=== PATIENT | male | born 1950 | race Caucasian/White ===

== ENCOUNTER 2018-04-02 08:58 | Inpatient (IN) | payer MEDICARE, SELFPAY ==
[2018-03-27 11:01] VITALS: BMI 22.7
[2018-04-02] VITALS (12 sets, daily range): BP systolic 101–142; BP diastolic 51–72; PULSE 73–103; RESP 10–22; TEMP 36.4–36.9; O2SAT 95–100; BMI 22.7
--- NOTE | 2018-04-02 | DI.RAD.S_ITS ---
PROCEDURE: XR LUMBAR SPINE 2-3V INDICATIONS: L4-5, L5-S1 TLIF TECHNIQUE: 2 views of the lumbar spine were acquired. COMPARISON: None. FINDINGS: Bones: Postsurgical changes compatible with L4-L5 and L5-S1 TLIF. Orthopedic hardware is intact. No lucencies at the bone hardware interface. Soft tissues: Overlying bowel gas pattern is normal. No suspicious soft tissue calcifications. IMPRESSION: Expected postsurgical change for L4-L5 and L5-S1 TLIF. Dictated by: Lorin Mcbride MD, PhD on 04/02/2018 at 14:24 Approved by: Lorin Mcbride MD, PhD on 04/02/2018 at 14:30
[2018-04-02] MEDS: LACTATED RINGERS 1,000 ML 42 ML IV ×2 (09:37→12:44)
--- NOTE | 2018-04-02 10:15 | PM.PREOP ---
Pre-operative Note Interval Note Pre-op Check: Yes History & Physical Reviewed by Physician and Yes Exam Performed Changes: No
--- NOTE | 2018-04-02 10:21 | PM.OP.1 ---
Operative Date/Time/Diagnoses Date of procedure: 04/02/18 Time of procedure: 15:04 Pre-op diagnosis: Lumbar stenosis with radiculopathy Lumbar spondylolisthesis Post-op diagnosis: same Procedure & Clinicians Procedure: L4-5 TLIF (post/post innerbody fusion) with cage L5S1 TLIF (post/post innerbody fusion) with cage L4, L5, S1 screws Iliac crest bone graft aspirate L4-5 and L5-S1 laminectomy Use of microscope Placement of epidural catheter Same procedure as scheduled: Yes Indications: [age] year old male with intractable pain from stenosis. They had failed conservative management and requested operative intervention. Risks and benefits of surgery were discussed and appropriate consents were obtained. Surgeon: Sourav Saavedra Director [employer] Engineering: Sulema Hansen Anesthesia Type: General Operative Notes Findings: None Closure Type: primary Specimen(s): none sent Implants & Drains: NuVasive MAS reline screws Globus Rise cages Applied: catheter Estimated Blood Loss (mL): 100 Procedure in detail: The patient was brought to the operating room and intubated on the table. A time-out was performed. They were then rolled over to the well-padded Harvinder table in the prone position. Preoperative antibiotics were given. The back was prepped and draped in the standard sterile fashion. Using fluoroscopy, a 6 cm longitudinal incision was made to the left of the midline. We used Bovie to come down to and split the lumbodorsal fascia. Using fluoroscopy and monitoring, we then percutaneously placed Jamshidi needles down the pedicles of L4, L5, and S1 on the left side. These were changed out to guidewires and then we tapped and then placed the NuVasive MAS Precept screw shanks. We then opened up the retractors and used Bovie to clear up the posterolateral gutter as well as medially along the lamina to the spinous processes. A bur was used to decorticate the transverse processes. We brought in the microscope. Using a combination of bur and Kerrison rongeurs, a laminectomy was performed from the left side. We cleared over past the midline and carefully depressed the dura until we were able to decompress the opposite side. We cleared out the neural foramen. This completed the laminectomy at L5-S1. We then began the TLIF prep at L5-S1. A complete facetectomy was performed on this side. We carefully cleaned up the remainder of the foramen until we could easily retract the exiting root as well as clearing medially below the dura and expose the disc space. The disc was prepped with bipolar and then an annulotomy was performed. We performed a diskectomy using a combination of paddles, su, Kerrison, and curettes. We distracted the disc using a paddle and locked the retractor in an open position. We then filled the disc space with Osteocell bone graft. We then placed the globus Rise cage under fluoroscopy and then filled this in with more bone graft. The distraction on the retractor was released to compress down. This completed the posterior interbody fusion portion of the TLIF at L5-S1. We then moved up a level and performed the laminectomy at L4-5. This was extremely tight throughout the central canal and required extensive decompression making a separate and distinct procedure from the normal approach for a TLIF. At the end of it we could move the ball probe well across the midline and out the foramen and everything was opened. We then performed a facetectomy at L4-5. We prepped the disc space with bipolar. The dura was carefully retracted and we prepped the disc space with su, pituitaries, and curettes. Osteocell bone graft was placed in the disc space and then we placed and expanded another globus Rise cage under fluoroscopic visualization. We then placed the screw heads, mary, and locked down the set screws. The wound was copiously irrigated. A small stab incision was made over the PSIS. We used a Jamshidi needle to aspirate several mL of bone marrow from the pelvis. This was mixed with the remaining Osteocell and combined with all of the locally harvested bone graft and placed in the posterolateral gutter for the posterior fusion of the TLIF at L4-5 and L5-S1. An epidural catheter was then placed in the spinal canal by carefully depressing the dura and advancing it 6 cm cephalad under the remaining lamina without resistance. The muscle fascia was closed. The catheter was then injected with a solution containing 4 mL of 0.5% Marcaine, 1 mg Stadol, 4 mg Duramorph, and 100 mcg of fentanyl. This was injected without resistance and the catheter was pulled. We then went to the opposite side. Again using fluoroscopy, a 3 cm incision was made and Bovie was used to come down to split the fascia. Using neural monitoring and fluoroscopy, Jamshidi needles were advanced down the pedicles of L4, L5, and S1 on the right side. These were switched over guidewires, tapped, and screws placed. We then placed a mary and locked the set screws on this side. The wound was irrigated. The fascia was closed. Vancomycin powder was placed in the wounds. The superficial and skin were closed. A sterile dressing was placed. The patient was then rolled over extubated and brought to recovery room without complications. Complications: none Condition: stable Disposition: PACU Plan for aftercare: Inpatient. Up with physical therapy.
[2018-04-02] MEDS: CEFAZOLIN 2 GM/100 ML FROZ.PIGGY IV ×2 (11:14→19:03)
--- NOTE | 2018-04-02 11:50 | SUR.OPER ---
Prone on spine table, head in foam head support, padded chest and pelvic supports, gel pad at knees, lower legs supported by pillows; nipples, genitalia and toes free of pressure, arms secured on foam padded arm boards at <90 degrees abduction. Tape over blanket at thigh secured to table.
[2018-04-02] MEDS: VANCOMYCIN 1,000 MG VIAL 1000 MG TOP (11:59)
[2018-04-02] MEDS: SODIUM CHLORIDE 0.9% 1,000 ML, GENTAMICIN 80 MG IRR (11:59)
[2018-04-02] MEDS: BUPIVACAINE 0.5% (PF) 4 ML, MORPHINE-PF 4 MG, BUTORPHANOL 1 MG, fentaNYL 100 MCG INJ (14:01)
--- NOTE | 2018-04-02 15:11 | SUR.PHASEI ---
PT NOW MORE AWAKE, FOLLOWS SIMPLE COMMANDS.
--- NOTE | 2018-04-02 15:37 | SUR.PHASEI ---
PT C/O R EYE IRRITATION, EYE TEARING, SOMEWHAT BLOODSHOT, DR LINTON AWARE, NO C/O PAIN TO BACK.
--- NOTE | 2018-04-02 15:44 | SUR.PHASEI ---
AWAITING DIRECTION FROM DR LINTON ABOUT R EYE PAIN
--- NOTE | 2018-04-02 16:20 | PC.NURSE ---
Pt to room 209 from PACU drowsy, but rousable. Hard of hearing, but appropriate mentation and conversation when heard. Granddaughter accompanies pt. Continuous pulse oximeter in place. Room air 93%. Pt c/o right eye pain and SERVICE STATION OPERATOR is aware and states so is anesthesiologist who prescribed erythromycin ointment which has been given per SERVICE STATION OPERATOR. Intact circulation, motion, sensation to BL LE's. Kaur to gravity.
--- NOTE | 2018-04-02 16:28 | SUR.PHASEI ---
late entry: called into room to talk with dr jorge nunesomycin ointment ordered, called to pharmacy and spoke with carroll, ointment brought to unit and dose given to pt. pt eventually stated eye felt much better, was able to keep eye open and did not need to rub it, eye also stopped tearing. pt brought up to room 209, and left with clayton in stable condition.
--- NOTE | 2018-04-02 16:59 | PC.NURSE ---
Pt c/o increasing burning pain to right eye. Eye is watery with reddened conjunctiva. Pt reports able to see without difficulty, but eye continues to water continually. LINK WIRE FABRIC MACHINE TENDER, Velvet, was contacted by telephone and this chief underwriter requested MD come to pt's room to assess pt's eye. Pt becoming angry with situation.
[2018-04-02] MEDS: LACTATED RINGERS 1,000 ML 125 ML IV (17:05)
[2018-04-02] MEDS: HYDROCODONE/ACET 5/325 TABLET 2 TAB PO (17:14)
--- NOTE | 2018-04-02 17:17 | PC.NURSE ---
Dr. Le in to see patient and examine pt's right eye. Medicated for pain as per Dr. Le. Two vicodin with evening meal.
[2018-04-02] MEDS: CELECOXIB 200 MG CAPSULE 400 MG PO (17:48)
[2018-04-02] MEDS: INSULIN ASPART 100 UNIT/ML INSULN PEN SUBCUT (17:49)
--- NOTE | 2018-04-02 18:15 | PC.NURSE ---
Pt continues to be angry with verbal outbursts re painful right eye. Using foul language. Staff intervene as needed, but allow pt time alone with family in room and respite from staff interventions and interruptions. Offered ice pack to eye which pt declines. Offered gauze patch to right eye which pt refuses.
--- NOTE | 2018-04-02 19:07 | PC.NURSE ---
Granddaughters have assisted pt in taking evening meal. Pt with excellent appetite and able to feed self. More calm, cooperative with staff s/p vistaril administration.
--- NOTE | 2018-04-02 21:05 | PC.NURSE ---
Pt now wide awake and reports right eye feels much more comfortable. No longer tearful and erythema has subsided. Pt agreeable and cooperative with staff. Offered pain meds to pt and pt declines stating not currently experiencing pain.
[2018-04-02] MEDS: buPROPion SR 150 MG TAB PO (21:08)
[2018-04-02] MEDS: METFORMIN HCL 500 MG TABLET PO (21:09)
[2018-04-02] MEDS: GABAPENTIN 300 MG CAPSULE PO (21:09)
[2018-04-02] MEDS: DOCUSATE 100 MG CAPSULE PO (21:09)
[2018-04-02] MEDS: CELECOXIB 200 MG CAPSULE PO (21:09)
[2018-04-02] MEDS: SENNOSIDES 8.6 MG TABLET 17.2 MG PO (21:10)
--- NOTE | 2018-04-02 23:11 | PC.NURSE ---
Invited to reposition and pt refuses. States is able to move core independently in bed and shift weight.
[2018-04-03] MEDS: LACTATED RINGERS 1,000 ML 125 ML IV (01:51)
[2018-04-03 01:55] VITALS: BP 113/55; PULSE 64; RESP 18; TEMP 36.7; O2SAT 99
--- NOTE | 2018-04-03 02:15 | PC.NURSE ---
Addendum entered by Roya Reyes R.N. 04/03/18 06:34: Patient slept most of shift. Pleasant and cooperative this morning and has apologized for behavior last night. States eye no longer hurts but still tearing. No redness noted. Pain currently 3/10 but declines offer of pain medication and/or Vistaril and ice pack. Original Note: Patient is alert and oriented. Has been sleeping since start of shift, but now awakened. Breath sounds CTA with RA sat of 99%. HRR. Denies nausea. BT present with flatus/stool in colostomy bag. Indwelling catheter is patent. Able to turn self in bed. Dressing to lower back is CDI. States pain is currently 4/10 but declined offer of pain med stating pain is tolerable. CMS intact where numbness was present pre-op. Instructed in use of incentive spirometer and demonstrated correct use of device but only able to get to 1500. Wearing bilateral footie SCD's. Fall risk score is moderate; bed alarm is activated.
[2018-04-03] MEDS: CEFAZOLIN 2 GM/100 ML FROZ.PIGGY IV (03:07)
[2018-04-03 06:05] VITALS: BP 105/50; PULSE 63; RESP 20; TEMP 36.4; O2SAT 99
[2018-04-03 06:28] LABS: Add Manual Diff / Slide Review NO; Basophils Percent Auto 0.5 % (0-2); Eosinophils Percent Auto 0.7 % (2-4); Hematocrit 31.1 % (41-53); Hemoglobin 10.4 g/dL (13.5-17.5); Lymphocytes Percent Auto 22.1 % (25-40); Mean Corpuscular HGB Conc 33.4 % (30-36); Mean Corpuscular Hemoglobin 31.3 PG (26-34); Mean Corpuscular Volume 93.5 fL (80-100); Neutrophils Absolute Auto 7300 /uL (3000-5900); Neutrophils Percent Auto 67.7 % (50-75); Red Blood Cell Count 3.32 X10^6/uL (4.5-5.9); Red Cell Distribution Width 16.5 % (11.6-14.8); White Blood Cell Count 10.9 X10^3/uL (4.5-11.0)
[2018-04-03 06:49] LABS: Platelet Count 64 X10^3/uL (150-400)
--- NOTE | 2018-04-03 06:58 | P.PN_ITS ---
Subjective Date Patient Seen: 04/03/18 Time Patient Seen: 06:57 Interval history: Pain is about 3/10. All in the low back. The legs feel normal. Exam Vital Signs (past 8 hours): - 04/03/18 01:55 04/03/18 06:05 Temperature 98.0 F 97.5 F L Pulse Rate 64 63 Respiratory Rate 18 20 Blood Pressure 113/55 L 105/50 L Pulse Oximetry 99 99 Oxygen Delivery Method Room Air Oxygen Flow Rate 0 Const Orientation: alert and oriented x3 Back/Spine/Pelvis Other: Dressing CDI. 5/5 motor both lower extremities. Objective Labs Result Diagrams: 04/03/18 06:02 Labs: Laboratory Results - last 24 hr 04/03/18 06:02 WBC 10.9 RBC 3.32 L Hgb 10.4 L Hct 31.1 L MCV 93.5 MCH 31.3 MCHC 33.4 RDW 16.5 H Plt Count 64 L Neut % (Auto) 67.7 Lymph % (Auto) 22.1 L Bartholomew % (Auto) 9.0 Eos % (Auto) 0.7 L Baso % (Auto) 0.5 Neut # (Auto) 7300 H glucose 170-280 Assessment & Plan Post-op Postoperative Procedures Operation Date: 04/02/18 11:15 Actual Procedures Side Surgeon p L4-5, L5-S1 Laminectomy w/Instru. Fusion & bone graft TLIF Not Applicable Sourav Saavedra MD He is doing well after his laminectomy and fusion. We will increase his insulin dosing. Mobilize with therapy. Discharge home in the next few days. Platelets are 64 today. This is consistent with his history of thrombocytopenia. We will recheck tomorrow. Quality VTE Deep Vein Thrombosis/Pulmonary Embolism Present on Admission: No
[2018-04-03 07:30] VITALS: BP 97/53; PULSE 64; RESP 16; TEMP 36.9; O2SAT 98
[2018-04-03] MEDS: INSULIN ASPART 100 UNIT/ML INSULN PEN SUBCUT ×3 (08:18→17:05)
[2018-04-03] MEDS: METFORMIN HCL 500 MG TABLET PO ×2 (08:20→19:59)
[2018-04-03] MEDS: HYDROCODONE/ACET 5/325 TABLET 1 TAB PO ×3 (08:22→20:00)
[2018-04-03] MEDS: DOCUSATE 100 MG CAPSULE PO (08:23)
[2018-04-03] MEDS: ASPIRIN EC 81 MG TABLET PO (08:23)
[2018-04-03] MEDS: ATORVASTATIN 20 MG TABLET 40 MG PO (08:23)
[2018-04-03] MEDS: buPROPion SR 150 MG TAB PO ×2 (08:23→19:59)
[2018-04-03] MEDS: CELECOXIB 200 MG CAPSULE PO ×2 (08:24→19:59)
--- NOTE | 2018-04-03 09:52 | PT.IIE ---
Addendum entered and electronically signed by Socorro Evans PT 04/03/18 17:29: This is to certify that I have reviewed this documentation and POC. Original Note: Current Diagnoses Spinal stenosis, lumbar region with neurogenic claudication (04/02/18) Radiculopathy, lumbosacral region (04/02/18) Low back pain (04/02/18) Surgery Performed Operation Date: 04/02/18 11:15 Actual Procedures p L4-5, L5-S1 Laminectomy w/Instru. Fusion & bone graft TLIF(Not Applicable) - Sourav Saavedra MD Surgical History (Last Updated 03/17/18 @ 10:02 by Erica Pacheco RN) History of arthroscopy of both shoulders (Acute) S/P cervical spinal fusion (Acute) Medical History (Last Updated 03/27/18 @ 10:29 by Erica Pacheco RN) Chronic back pain (Acute) Colon cancer (Acute) DDD (degenerative disc disease) (Acute) Depression (Acute) Diabetes (Acute) Dyshidrosis (Acute) Erectile dysfunction (Acute) [place] (hard of hearing) (Acute) Hyperlipidemia (Acute) Lumbar radiculitis (Acute) Perforated sigmoid colon (Acute) Peripheral neuropathy (Acute) Thrombocytopenia (Acute) Physical Therapy Inpatient Evaluation/Re-Eval M1 PT/OT-IP Prior Functional Status Start: 04/03/18 11:11 Freq: NEEDED Status: Active Protocol: Document 04/03/18 09:52 (Rec: 04/03/18 11:40 [id number]) Medical Review Prior Functional Status Medical History Reviewed Yes Communication No deficits noted Mobility and Gait Pt uses spc indoors < 20% of the time and outdoors >20% of the time (for gravel driveways and uneven terrain) Otherwise he ambulates with no AD. He is independent with all other mobilties including bathing, dressing and self care. Social History Household Members family friend(s) Living Arrangements House Number of Floors (Floors) One Floor Number of Stairs To Enter/Railing? 4 steps with B wide rails to enter. Home Environment Standard Height Toilet Tub/Shower Doors Home Equipment Front Wheel Walker Straight Cane Manual Wheelchair Shower Seat with Backrest Hand Held Shower Grab Bars Near Toilet Grab Bars In Shower Employment Status Retired Additional Social History Comment Pt lives with his adult son who will be moving out soon and his friend (Kirsty) who is a nurse working the 10pm-6 am shift so she is availiable to assist him during the daytime hours and his son is there at night. Pt also owns a mechanical recliner. He states that he typically sleeps with HOB propped up with pillows. M2 PT-IP Current Condition Start: 04/03/18 11:11 Freq: NEEDED Status: Active Protocol: Document 04/03/18 15:45 [facility] (Rec: 04/03/18 15:54 [facility] [id number]) Physical Therapy Current Condition Current Condition Evaluation Date 04/03/18 Treatment Diagnosis Lumbar TLIF; difficulty walking Onset Date 04/02/2018 Precautions Lumbar Precautions Log Roll No Twisting Limit Bending Lifting Restriction of 10 lbs Gait Belt above Incisional Area Other Precautions colostomy bag M3 PT-IP Subjective Start: 04/03/18 11:11 Freq: NEEDED Status: Active Protocol: Document 04/03/18 15:45 [facility] (Rec: 04/03/18 15:54 [facility] [id number]) Subjective Physical Therapy Visit Type Type Treatment Note Visit Start Time 15:31 Visit Stop Time 15:45 Total Visit Minutes 14 Notes 0 Number of CHILD SPECIALIST Visits 0 Physical Therapy Visit Comments Patient Comments pt states he feels a little more tight than he did earlier today, but overall doing well . M4 PT-IP Mobility and Gait Start: 04/03/18 11:11 Freq: NEEDED Status: Active Protocol: Document 04/03/18 15:45 [facility] (Rec: 04/03/18 15:54 [facility] [id number]) PT-Transfer Assessment Sit to and From Stand Sit to and from Stand Standby Assistance Use of Upper Extremities Equipment Transfer Assistive Device Gait Belt Front Wheeled Walker Transfers Transfer Destination Chair Transfer Technique Stand Step Pivot Transfer Ability Level of Assist Standby Assistance Use of Upper Extremities Gait Assessment Gait Gait Assistance Required: Standby Assistance Distance (Feet) 120 Assistive Devices Assistive Device Gait Belt Front Wheeled Walker Gait Deviations General Gait Pattern Decreased Feet Clearance Flexed Trunk Factors Limiting Gait Function Factors Limiting Gait Function Decreased Activity Tolerance Decreased Strength Comments Gait Comments Pt able to self correct forward posture without cuing. Increased forward posture when fatigued. Stair Climbing Assessment Evaluation Level of Assist On Stairs Contact Guard Assistance Devices Stair Climbing Assistive Devices Left Railing Right Railing Technique/Endurance Stair Climbing Direction Ascend and Descend Stair Climbing Technique Step Over Step Number of Steps Climbed 3 Query Text: Stair Climbing Set # Repetitions (reps) 1 M5 PT-IP Objective Assessments Start: 04/03/18 11:11 Freq: NEEDED Status: Active Protocol: Document 04/03/18 09:52 (Rec: 04/03/18 11:40 [id number]) Orientation Orientation/Cognition Level of Alertness Alert Orientation Name Age Birthday Month Date Year Day of Week Place Situation Language Function Ability No Deficits Noted Safety Awareness Decreased Safety Awareness Gross Range of Motion Lower Extremity ROM Assessment Within Functional Limits Strength Lower Extremity Strength Assessment Within Functional Limits Sensation Assessment Sensation Light Touch Intact Comments Sensation Comments Pt states numbness and tingling in BLE is significantly decreased compared to prior surgery, however is still present at a low level. M6 PT-IP Treatment Start: 04/03/18 11:11 Freq: NEEDED Status: Active Protocol: Document 04/03/18 15:45 [facility] (Rec: 04/03/18 15:54 [facility] [id number]) Physical Therapy Treatment Education Education Provided Precautions Safety M7 PT-IP Assessment and Plan Start: 04/03/18 11:11 Freq: NEEDED Status: Active Protocol: Document 04/03/18 15:45 [facility] (Rec: 04/03/18 15:54 [facility] [id number]) PT Summary Assessment and Plan Summary Progress Towards Goals Progressing Toward Goals Assessment Summary Pt able to manage stairs with B rails and CGA, but will need to perform steps with SPC and one rail as he is unable to use 2 rails at home. Pt requested to get back to the chair, therefore bed mobility not assessed this session. Pt tolerated ambulation well without increased c/o pain, although does note that he feels stiff/tight in low back. Pt is making good progress with therapy. Expect he will be able to d/c home when medically stable. Goals Bed Mobility Goal Independent Transfer Goal Independent Front Wheeled Walker Gait Goal Independent Front Wheel Walker Gait Distance 150 Days to Meet Goals 3 Frequency of Treatment Frequency Of Treatment Twice a Day Treatment Plan Other Recommendations and Next Treatment prog. bed mobility, gait, Focus stairs with SPC and one rail Recommendations To Nursing Amount of Assist Needed 1 Person Assist Discharge Recommendations PT Discharge Recommendations Home with Assistance
[2018-04-03 11:45] VITALS: BP 109/56; PULSE 66; RESP 18; TEMP 36.7; O2SAT 96
--- NOTE | 2018-04-03 12:14 | PC.NURSE ---
AM NOTE - alert, states mild discomfort 3-4 on scale 0/10, discussed medications and did admin norco 5/325 x1 tab with breakfast, later up w/phys therapy, denies dizziness, bp 107/37 when stood, mamadou po and ivf heplocked, pain 5 on scale 0/10 after mobilization, to chair, barrier dsg back cdi, no redness or discomfort r eye that pt reported yesterday rosa, given norco 5/325mg for afternoon phys therapy after lunch.
--- NOTE | 2018-04-03 15:01 | PC.NURSE ---
ARIANE Holly I have offered Mr. Lopez if he would like help emptying or cleaning his colostomy he has continuously stated that he does not need help. I offered to set everything up for him to do it himself and he does not want to empty or clean it. There is bowel movement in the colostomy bag. ADALGISA Bonilla notified of this as well as RN coordinator Jonah.
[2018-04-03 15:30] VITALS: BP 139/54; PULSE 77; RESP 18; TEMP 36.7; O2SAT 97
--- NOTE | 2018-04-03 15:45 | PT.IPTN ---
Current Diagnoses Spinal stenosis, lumbar region with neurogenic claudication (04/02/18) Radiculopathy, lumbosacral region (04/02/18) Low back pain (04/02/18) Surgery Performed Operation Date: 04/02/18 11:15 Actual Procedures p L4-5, L5-S1 Laminectomy w/Instru. Fusion & bone graft TLIF(Not Applicable) - Sourav Saavedra MD Physical Therapy Treatment Note M2 PT-IP Current Condition Start: 04/03/18 11:11 Freq: NEEDED Status: Active Protocol: Document 04/03/18 15:45 [facility] (Rec: 04/03/18 15:54 [facility] [id number]) Physical Therapy Current Condition Current Condition Evaluation Date 04/03/18 Treatment Diagnosis Lumbar TLIF; difficulty walking Onset Date 04/02/2018 Precautions Lumbar Precautions Log Roll No Twisting Limit Bending Lifting Restriction of 10 lbs Gait Belt above Incisional Area Other Precautions colostomy bag M3 PT-IP Subjective Start: 04/03/18 11:11 Freq: NEEDED Status: Active Protocol: Document 04/03/18 15:45 [facility] (Rec: 04/03/18 15:54 [facility] [id number]) Subjective Physical Therapy Visit Type Type Treatment Note Visit Start Time 15:31 Visit Stop Time 15:45 Total Visit Minutes 14 Notes 0 Number of TREAD TUBER MACHINE OPERATOR Visits 0 Physical Therapy Visit Comments Patient Comments pt states he feels a little more tight than he did earlier today, but overall doing well . M4 PT-IP Mobility and Gait Start: 04/03/18 11:11 Freq: NEEDED Status: Active Protocol: Document 04/03/18 15:45 [facility] (Rec: 04/03/18 15:54 [facility] [id number]) PT-Transfer Assessment Sit to and From Stand Sit to and from Stand Standby Assistance Use of Upper Extremities Equipment Transfer Assistive Device Gait Belt Front Wheeled Walker Transfers Transfer Destination Chair Transfer Technique Stand Step Pivot Transfer Ability Level of Assist Standby Assistance Use of Upper Extremities Gait Assessment Gait Gait Assistance Required: Standby Assistance Distance (Feet) 120 Assistive Devices Assistive Device Gait Belt Front Wheeled Walker Gait Deviations General Gait Pattern Decreased Feet Clearance Flexed Trunk Factors Limiting Gait Function Factors Limiting Gait Function Decreased Activity Tolerance Decreased Strength Comments Gait Comments Pt able to self correct forward posture without cuing. Increased forward posture when fatigued. Stair Climbing Assessment Evaluation Level of Assist On Stairs Contact Guard Assistance Devices Stair Climbing Assistive Devices Left Railing Right Railing Technique/Endurance Stair Climbing Direction Ascend and Descend Stair Climbing Technique Step Over Step Number of Steps Climbed 3 Query Text: Stair Climbing Set # Repetitions (reps) 1 M5 PT-IP Objective Assessments Start: 04/03/18 11:11 Freq: NEEDED Status: Active Protocol: Document 04/03/18 09:08 (Rec: 04/03/18 11:40 [id number]) Orientation Orientation/Cognition Level of Alertness Alert Orientation Name Age Birthday Month Date Year Day of Week Place Situation Language Function Ability No Deficits Noted Safety Awareness Decreased Safety Awareness Gross Range of Motion Lower Extremity ROM Assessment Within Functional Limits Strength Lower Extremity Strength Assessment Within Functional Limits Sensation Assessment Sensation Light Touch Intact Comments Sensation Comments Pt states numbness and tingling in BLE is significantly decreased compared to prior surgery, however is still present at a low level. M6 PT-IP Treatment Start: 04/03/18 11:11 Freq: NEEDED Status: Active Protocol: Document 04/03/18 15:45 [facility] (Rec: 04/03/18 15:54 [facility] [id number]) Physical Therapy Treatment Education Education Provided Precautions Safety M7 PT-IP Assessment and Plan Start: 04/03/18 11:11 Freq: NEEDED Status: Active Protocol: Document 04/03/18 15:45 [facility] (Rec: 04/03/18 15:54 [facility] [id number]) PT Summary Assessment and Plan Summary Progress Towards Goals Progressing Toward Goals Assessment Summary Pt able to manage stairs with B rails and CGA, but will need to perform steps with SPC and one rail as he is unable to use 2 rails at home. Pt requested to get back to the chair, therefore bed mobility not assessed this session. Pt tolerated ambulation well without increased c/o pain, although does note that he feels stiff/tight in low back. Pt is making good progress with therapy. Expect he will be able to d/c home when medically stable. Goals Bed Mobility Goal Independent Transfer Goal Independent Front Wheeled Walker Gait Goal Independent Front Wheel Walker Gait Distance 150 Days to Meet Goals 3 Frequency of Treatment Frequency Of Treatment Twice a Day Treatment Plan Other Recommendations and Next Treatment prog. bed mobility, gait, Focus stairs with SPC and one rail Recommendations To Nursing Amount of Assist Needed 1 Person Assist Discharge Recommendations PT Discharge Recommendations Home with Assistance
--- NOTE | 2018-04-03 16:03 | CM.IDA ---
Discharge Planning/Care Management CM Discharge Assessment Start: 04/03/18 15:57 Freq: Status: Active Protocol: Document 04/03/18 15:57 [facility] (Rec: 04/03/18 16:03 [facility] [id number]) Discharge Planning Assessment Assigned Vibrating Screed Operator Evelyne Kimberley, LASHAE DPOA/Assigned Designee Name Marilou Milton dtr Contact Information [phone] Advance Directives? No History Provided By Patient Family Member Prior Living Arrangements House Household Members family friend(s) Comment Lives w/ friend and son Type of transporation used prior to Drives own vehicle admit Independent with ADL's Yes Is patient alert and oriented? Yes Barriers to Discharge No Comment Met w/pt, explained role. Pt explains he lives w/family. He expects to go home today or tomorrow? Pt has 5 children, two dtrs will make themselves available to assist pt when pt's son will not be there. Pt says he's been mostly indp and active, has 5 acres he takes care of, works on cars, and has a lot of pets. Pt feels confident about going home, he's very appreciative of this ASSISTANT BASEBALL COACH's visit and explains he had Hospice service when his was dying of CA and he really appreciated the SW they worked with. No expected DC needs. Discharge Plan Home Transportation Arrangement Family Referrals Initiated None needed Whiteboard Updated in Patient Room with Yes name and ext. # of Vibrating Screed Operator Laurie
--- NOTE | 2018-04-03 17:05 | OT.IP.TRT ---
Current Diagnoses Spinal stenosis, lumbar region with neurogenic claudication (04/02/18) Radiculopathy, lumbosacral region (04/02/18) Low back pain (04/02/18) Surgery Performed Operation Date: 04/02/18 11:15 Actual Procedures p L4-5, L5-S1 Laminectomy w/Instru. Fusion & bone graft TLIF(Not Applicable) - Sourav Saavedra MD Occupational Therapy Treatment Note M3 OT- IP Subjective and Pain Start: 04/03/18 17:03 Freq: Status: Active Protocol: Document 04/03/18 17:03 [facility] (Rec: 04/03/18 17:05 [facility] [id number]) OT- Subjective Occupational Therapy Visit Type Type Patient Unavailable Notes Pt's dinner just arrived and therefore to do OT eval tomorrow.
[2018-04-03 19:47] VITALS: BP 120/72; PULSE 96; RESP 18; TEMP 37.1; O2SAT 98
[2018-04-03] MEDS: SODIUM CHLORIDE 0.9% FLUSH 10 ML IV (19:59)
[2018-04-03] MEDS: GABAPENTIN 300 MG CAPSULE PO (19:59)
[2018-04-04 01:10] VITALS: BP 118/80; PULSE 69; RESP 16; TEMP 36.8; O2SAT 97
[2018-04-04] MEDS: HYDROCODONE/ACET 5/325 TABLET 1 TAB PO ×3 (01:17→09:53)
--- NOTE | 2018-04-04 01:33 | PC.NURSE ---
Addendum entered by Roya Reyes R.N. 04/04/18 06:38: States pain is currently 6/10 but when questioned to compare to pain when he attempted to stand he states it's about the same. Assisted to reposition onto right side and now agreeable to having ice pack applied. Original Note: Addendum entered by Roya Reyes R.N. 04/04/18 05:54: When attempting to stand at side of bed to urinate, patient suddenly sat down and complaining of spasm to left side of dressing on back. States pain is 4/10; medicated with Vicodin + Vistaril. Declined offer of ice. Assisted back to lying position and turned onto left side per his request with pillow behind back and between knees. Original Note: Addendum entered by Roya Reyes R.N. 04/04/18 05:09: Earlier patient complained that dressing was irritating as Tegaderm was rolling up on lower edge. Dressing replaced. Incisions well approximated and without redness. Old sanguinous drainage noted on gauze dressings that were removed. Original Note: Patient is alert and oriented but MANZANITA without hearing aids in. Breath sounds CTA with RA sat of 96%. HRR. Denies nausea. BT present; colostomy on left abdomen with brown stool in bag. Indwelling catheter patent; patient requests bradford be removed at this time so d'cd as per MD order to remove on post op day 2. Instructed in sx/prevention of UTI. Dressing to back is CDI. Complains of 4/10 pain so medicated with Vicodin but declines ice pack. Independent with bed mobility. Up yesterday with walker and 1 assist. Chronic, intermittent tingling/numbness in fingers of bilateral hands. CMS intact to LE. Wearing bilateral foot SCD's. Fall risk is moderate; bed alarm is activated.
[2018-04-04 04:00] VITALS: BP 143/76; PULSE 69; RESP 16; TEMP 36.6; O2SAT 94
[2018-04-04] MEDS: hydrOXYzine pamoate 25 MG CAPSULE PO ×2 (05:50→09:53)
[2018-04-04] MEDS: CELECOXIB 200 MG CAPSULE PO (08:14)
[2018-04-04] MEDS: ASPIRIN EC 81 MG TABLET PO (08:14)
[2018-04-04] MEDS: buPROPion SR 150 MG TAB PO (08:14)
[2018-04-04] MEDS: ATORVASTATIN 20 MG TABLET 40 MG PO (08:14)
[2018-04-04] MEDS: DOCUSATE 100 MG CAPSULE PO (08:15)
[2018-04-04] MEDS: METFORMIN HCL 500 MG TABLET PO (08:15)
[2018-04-04] MEDS: SODIUM CHLORIDE 0.9% FLUSH 10 ML IV (08:15)
[2018-04-04] MEDS: INSULIN ASPART 100 UNIT/ML INSULN PEN SUBCUT ×2 (08:16→12:12)
[2018-04-04 08:32] VITALS: BP 139/68; PULSE 69; RESP 15; TEMP 36.7; O2SAT 99
[2018-04-04 08:57] LABS: Add Manual Diff / Slide Review NO; Basophils Percent Auto 0.4 % (0-2); Hematocrit 31.6 % (41-53); Hemoglobin 10.7 g/dL (13.5-17.5); Mean Corpuscular Hemoglobin 31.6 PG (26-34); Mean Corpuscular Volume 92.9 fL (80-100); Monocytes Percent Auto 8.3 % (3-14); Neutrophils Absolute Auto 6200 /uL (3000-5900); Neutrophils Percent Auto 68.3 % (50-75); Platelet Count 57 X10^3/uL (150-400); Red Cell Distribution Width 16.2 % (11.6-14.8); White Blood Cell Count 9.1 X10^3/uL (4.5-11.0)
--- NOTE | 2018-04-04 09:29 | PM.PNPO.1 ---
Subjective Date Patient Seen: 04/04/18 Time Patient Seen: 09:29 Interval history: Patient states his pain was well controlled until yesterday evening. He has had increased left-sided low back pain since late last night or early this morning. Denies radiation and localized just to the left lower lumbar spine. Denies fever chills. No nausea vomiting. Exam Vital Signs (past 8 hours): - 04/04/18 04:00 04/04/18 08:32 Temperature 97.8 F 98.1 F Pulse Rate 69 69 Respiratory Rate 16 15 Blood Pressure 143/76 H 139/68 Pulse Oximetry 94 99 Oxygen Delivery Method Room Air Oxygen Flow Rate 0 Narrative Exam Narrative: Pleasant 67-year-old male in no acute distress resting comfortably in bed. The lumbar dressing is clean, dry and intact. He is generally tender along the left lower lumbar spine. There is no ecchymosis or erythema present. Sensation is grossly intact to light touch bilateral lower extremities. Motor functions intact distal bilateral lower extremities. Objective Labs Result Diagrams: 04/04/18 08:30 Labs: Laboratory Results - last 24 hr 04/04/18 08:30 WBC 9.1 RBC 3.40 L Hgb 10.7 L Hct 31.6 L MCV 92.9 MCH 31.6 MCHC 34.0 RDW 16.2 H Plt Count 57 L Neut % (Auto) 68.3 Lymph % (Auto) 20.0 L [place] % (Auto) 8.3 Eos % (Auto) 3.0 Baso % (Auto) 0.4 Neut # (Auto) 6200 H Assessment & Plan Post-op Postoperative Procedures Operation Date: 04/02/18 11:15 Actual Procedures Side Surgeon p L4-5, L5-S1 Laminectomy w/Instru. Fusion & bone graft TLIF Not Applicable Sourav Saavedra MD Postop day 2.. Patient likely having some muscle spasms in the left lower lumbar spine and will increase his Vistaril to see if this helps. He will mobilize with physical therapy today. Likely discharge home tomorrow. Quality VTE Deep Vein Thrombosis/Pulmonary Embolism Present on Admission: No
--- NOTE | 2018-04-04 10:50 | PT.IPTN ---
Current Diagnoses Spinal stenosis, lumbar region with neurogenic claudication (04/02/18) Radiculopathy, lumbosacral region (04/02/18) Low back pain (04/02/18) Surgery Performed Operation Date: 04/02/18 11:15 Actual Procedures p L4-5, L5-S1 Laminectomy w/Instru. Fusion & bone graft TLIF(Not Applicable) - Sourav Saavedra MD Physical Therapy Treatment Note M2 PT-IP Current Condition Start: 04/03/18 11:11 Freq: NEEDED Status: Active Protocol: Document 04/04/18 10:50 [facility] (Rec: 04/04/18 12:28 [facility] [id number]) Physical Therapy Current Condition Current Condition Evaluation Date 04/03/18 Treatment Diagnosis Lumbar TLIF; difficulty walking Onset Date 04/02/2018 Precautions Lumbar Precautions Log Roll No Twisting Limit Bending Lifting Restriction of 10 lbs Gait Belt above Incisional Area Other Precautions colostomy bag M3 PT-IP Subjective Start: 04/03/18 11:11 Freq: NEEDED Status: Active Protocol: Document 04/04/18 10:50 [facility] (Rec: 04/04/18 12:28 [facility] [id number]) Subjective Physical Therapy Visit Type Type Treatment Note Visit Start Time 10:24 Visit Stop Time 10:50 Total Visit Minutes 26 Number of HORSE STUD MANAGER Visits 0 Physical Therapy Visit Comments Patient Comments pt reports that he is having some L sided low back and upper buttock pain, meds helping a little. Therapy Pain Assessment Pain When Pain Assessed During Mobility Pain Present Pain Present Pain Reported Location Lower Back Intensity 4 Scale Used Numeric (1 - 10) Pain Management Techniques Modification of Treatment Timing of Activity with Medications M4 PT-IP Mobility and Gait Start: 04/03/18 11:11 Freq: NEEDED Status: Active Protocol: Document 04/04/18 10:50 [facility] (Rec: 04/04/18 12:28 [facility] [id number]) PT-Transfer Assessment Sit to and From Stand Sit to and from Stand Standby Assistance Use of Upper Extremities Equipment Transfer Assistive Device Gait Belt Front Wheeled Walker Transfers Transfer Destination Chair Transfer Technique Stand Step Pivot Transfer Ability Level of Assist Standby Assistance Use of Upper Extremities Comments Mobility Comments VC for precautions- no B.L.T. Gait Assessment Gait Gait Assistance Required: Standby Assistance Distance (Feet) 225 Assistive Devices Assistive Device Gait Belt Front Wheeled Walker Gait Deviations General Gait Pattern Decreased Feet Clearance Flexed Trunk Factors Limiting Gait Function Factors Limiting Gait Function Decreased Activity Tolerance Pain Comments Gait Comments VC for relaxation of upper traps/elevation of shoulder girdle. M5 PT-IP Objective Assessments Start: 04/03/18 11:11 Freq: NEEDED Status: Active Protocol: Document 04/03/18 09:52 (Rec: 04/03/18 11:40 [id number]) Orientation Orientation/Cognition Level of Alertness Alert Orientation Name Age Birthday Month Date Year Day of Week Place Situation Language Function Ability No Deficits Noted Safety Awareness Decreased Safety Awareness Gross Range of Motion Lower Extremity ROM Assessment Within Functional Limits Strength Lower Extremity Strength Assessment Within Functional Limits Sensation Assessment Sensation Light Touch Intact Comments Sensation Comments Pt states numbness and tingling in BLE is significantly decreased compared to prior surgery, however is still present at a low level. M6 PT-IP Treatment Start: 04/03/18 11:11 Freq: NEEDED Status: Active Protocol: Document 04/03/18 15:45 [facility] (Rec: 04/03/18 15:54 [facility] [id number]) Physical Therapy Treatment Education Education Provided Precautions Safety M7 PT-IP Assessment and Plan Start: 04/03/18 11:11 Freq: NEEDED Status: Active Protocol: Document 04/04/18 10:50 [facility] (Rec: 04/04/18 12:28 [facility] [id number]) PT Summary Assessment and Plan Summary Progress Towards Goals Progressing Toward Goals Assessment Summary POD #2 TLIF. Pt able to increase tolerance to gait this session, c/o some pain in L buttock and low back but no loss of balance in standing. Pt has multiple areas to get into the home, all require stairs with 1 or 2 rails. Pt appears safe to return home when medically stable, would benefit from reviewing log roll and stairs with unilat. rail. Goals Bed Mobility Goal Independent Transfer Goal Independent Front Wheeled Walker Gait Goal Independent Front Wheel Walker Gait Distance 150 Other Goals Pt will up/down 4 steps with one rail (L or R) as needed for safe access to home. Days to Meet Goals 3 Frequency of Treatment Frequency Of Treatment Twice a Day Treatment Plan Other Recommendations and Next Treatment review precautions, log roll, Focus 4 steps with unilat. rail. Recommendations To Nursing Amount of Assist Needed 1 Person Assist Discharge Recommendations PT Discharge Recommendations Home with Assistance
[2018-04-04 12:15] VITALS: BP 142/112; PULSE 111; RESP 16; TEMP 37.1; O2SAT 98
--- NOTE | 2018-04-04 13:07 | PC.NURSE ---
Pt walking in [place] with MOTORS ASSEMBLER using fww. Pt states he is ready to go home and requested that I call SALLY Valadez to get a discharge order. Called cell phone for Rufino Valadez and left a message.
--- NOTE | 2018-04-04 13:40 | OT.IP.EVAL ---
Current Diagnoses Spinal stenosis, lumbar region with neurogenic claudication (04/02/18) Radiculopathy, lumbosacral region (04/02/18) Low back pain (04/02/18) Surgery Performed Operation Date: 04/02/18 11:15 Actual Procedures p L4-5, L5-S1 Laminectomy w/Instru. Fusion & bone graft TLIF(Not Applicable) - Sourav Saavedra MD Past Medical History (Last Updated 03/27/18 @ 10:29 by Erica Pacheco RN) Chronic back pain (Acute) Colon cancer (Acute) DDD (degenerative disc disease) (Acute) Depression (Acute) Diabetes (Acute) Dyshidrosis (Acute) Erectile dysfunction (Acute) SHISHMAREF IRA (hard of hearing) (Acute) Hyperlipidemia (Acute) Lumbar radiculitis (Acute) Perforated sigmoid colon (Acute) Peripheral neuropathy (Acute) Thrombocytopenia (Acute) Surgical History (Last Updated 03/17/18 @ 10:02 by Erica Pacheco RN) History of arthroscopy of both shoulders (Acute) S/P cervical spinal fusion (Acute) Occupational Therapy Inpatient Evaluation/Re-Eval M1 PT/OT-IP Prior Functional Status Start: 04/03/18 11:11 Freq: NEEDED Status: Active Protocol: Document 04/03/18 09:52 (Rec: 04/03/18 11:40 [id number]) Medical Review Prior Functional Status Medical History Reviewed Yes Communication No deficits noted Mobility and Gait Pt uses spc indoors < 20% of the time and outdoors >20% of the time (for gravel driveways and uneven terrain) Otherwise he ambulates with no AD. He is independent with all other mobilties including bathing, dressing and self care. Social History Household Members family friend(s) Living Arrangements House Number of Floors (Floors) One Floor Number of Stairs To Enter/Railing? 4 steps with B wide rails to enter. Home Environment Standard Height Toilet Tub/Shower Doors Home Equipment Front Wheel Walker Straight Cane Manual Wheelchair Shower Seat with Backrest Hand Held Shower Grab Bars Near Toilet Grab Bars In Shower Employment Status Retired Additional Social History Comment Pt lives with his adult son who will be moving out soon and his friend (Kirsty) who is a nurse working the 10pm-6 am shift so she is availiable to assist him during the daytime hours and his son is there at night. Pt also owns a mechanical recliner. He states that he typically sleeps with HOB propped up with pillows. M1 PT/OT-IP Prior Functional Status Start: 04/03/18 17:03 Freq: NEEDED Status: Active Protocol: Document 04/04/18 13:26 [facility] (Rec: 04/04/18 13:40 [facility] [id number]) Medical Review Prior Functional Status Medical History Reviewed Yes Communication No deficits noted Mobility and Gait Pt uses spc indoors < 20% of the time and outdoors >20% of the time (for gravel driveways and uneven terrain) Otherwise he ambulates with no AD. He is independent with all other mobilties including bathing, dressing and self care. Social History Household Members family friend(s) Living Arrangements House Number of Floors (Floors) One Floor Number of Stairs To Enter/Railing? 4 steps with B wide rails to enter. Home Environment Standard Height Toilet Tub/Shower Doors Home Equipment Front Wheel Walker Straight Cane Manual Wheelchair Shower Seat with Backrest Hand Held Shower Grab Bars Near Toilet Grab Bars In Shower Additional Social History Comment Pt lives with his adult son who will be moving out soon and his friend (Kirsty) who is a nurse working the 10pm-6 am shift so she is availiable to assist him during the daytime hours and his son is there at night. Pt also owns a mechanical recliner. He states that he typically sleeps with HOB propped up with pillows. M2 OT-IP Current Condition Start: 04/03/18 17:03 Freq: Status: Active Protocol: Document 04/04/18 13:26 [facility] (Rec: 04/04/18 13:40 [facility] [id number]) Occupational Therapy Current Condition Current Condition Evaluation Date 04/04/18 Treatment Diagnosis Lumbar stenosis Diagnosis Onset Date 04/01/18 Post Operative Precautions Lumbar Precautions Log Roll No Twisting Limit Bending Lifting Restriction of 10 lbs Gait Belt above Incisional Area Other Precautions colostomy bag M3 OT- IP Subjective and Pain Start: 04/03/18 17:03 Freq: Status: Active Protocol: Document 04/04/18 13:26 [facility] (Rec: 04/04/18 13:40 [facility] [id number]) OT- Subjective Occupational Therapy Visit Type Type Initial Evaluation Visit Start Time 11:00 Visit Stop Time 11:55 Total Visit Minutes 55 Occupational Therapy Visit Comments Patient/Caregiver Goals Pt wanting to go home when medically stable. OT Pain Assessment Pain When Pain Assessed At Rest Pain Present Pain Present Pain Reported Location Lower Back Intensity 3 M4 OT- IP ADL's Start: 04/03/18 17:03 Freq: Status: Active Protocol: Document 04/04/18 13:26 [facility] (Rec: 04/04/18 13:40 [facility] [id number]) OT ADL-Dressing General Eval Upper Body Dressing Ability Independent Lower Body Dressing Ability Minimal Assistance Areas Needing Assistance Underpants/Brief Socks Shoes Assistive Devices Dressing Assistive Devices Tool Repair Technician Sock Aid Comments OT Dressing Comments Pt educated with use of iuss acoustic analyst for LB dressng in addition to socks aid. Pt tends to want to bend. Pt needing assist to tie shoes. OT ADL-Toileting General Evaluation Toileting Ability Standby Assistance Comments OT Toileting Comments Pt able to stand with FWW other to toilet to urinate, Pt independent with all colostomy care. OT ADL-Bathing General Evaluation Bathing Ability Contact Guard Assistance Areas Needing Assistance Wash/Dry Back Devices Bathing Equipment Hand Held Shower Sprayer Grab Bars M6 OT- IP Functional Cognition Start: 04/03/18 17:03 Freq: Status: Active Protocol: Document 04/04/18 13:26 [facility] (Rec: 04/04/18 13:40 [facility] [id number]) Cognitive Factors Limiting Selfcare Function Cognitive Ability Level of Alertness Alert Patient Orientation Name Place Situation Attention Span Ability Capable of Focused Attention Capable of Sustained Attention Ability to Follow Commands Able to Follow One Step Commands Memory Description Short Term Impaired Safety Awareness Decreased Ability to Apply Precautions Underestimates Need for Assistance Problem Solving Ability Needs Assist to Identify Solutions Cognitive Comments Cognitive Assessment Comments Pt needing reminders to incorporate back precautions during ADl needs, pt tends to forget about no bending. OT- Vision and Hearing OT- Hearing Assessment OT- Hearing Assessment Use of Hearing Aids M7 OT- IP Mobility and Balance Start: 04/03/18 17:03 Freq: Status: Active Protocol: Document 04/04/18 13:26 [facility] (Rec: 04/04/18 13:40 [facility] [id number]) OT-Transfer Assessment Sit to and From Stand Sit to and from Stand Standby Assistance Contact Guard Assistance Transfers Transfer Ability Standby Assistance Contact Guard Assistance Technique Transfer Destination Bed Chair Transfer Technique Stand Step Pivot Devices Transfer Assistive Devices Gait Belt Front Wheeled Walker Comments Mobility Comments CGA over threshold of shower with FWW. OT- Balance Assessment Sitting Balance and Reactions Static Sitting Balance Ability Normal Dynamic Sitting Balance Ability Normal Standing Balance and Reactions Static Standing Balance Ability Good Dynamic Standing Balance Ability Fair M9 OT- IP Assessment and Plan Start: 04/03/18 17:03 Freq: Status: Active Protocol: Document 04/04/18 13:26 [facility] (Rec: 04/04/18 13:40 [facility] [id number]) OT Summary Assessment and Plan Potential Rehabilitation Potential Good Analytic Complexity at Evaluation Low Summary OT Impairments Pain Balance Functional Cognition Functional Mobility Dressing Toileting Bathing Toilet Transfers Shower Transfers Progress Towards Goals Slow Progress due to Pain Slow Progress due to Cognition Assessment Summary Pt Low complexity and main barrier is decreased safety awareness and pt is a bit impulsive and would benefit from initially 24/7 assist if going home. Pt states has adult son, and multiple friend to assist and stay with him. Goals Grooming Goal Independent Dressing Goal Independent Toileting Goal Standby Assistance Bathing Goal Standby Assistance Toilet Transfer Goal Independent Shower Transfer Goal Standby Assistance Patient/Caregiver Education Goal Demonstrate Post-Op Precautions Caregiver Independent Assisting Patient Days to Meet Goals 2 Frequency of Treatment Frequency Of Treatment Once a Day Treatment Plan OT Treatment Plan ADL Training Functional Cognition Training Patient/Family Education Discharge Planning Other Treatment Recommendations and Next caregiver training and back Treatment Focus precautions for ADL needs. Discharge Recommendations OT Discharge Recommendations Home with 24/7 Assist
--- NOTE | 2018-04-04 14:40 | PM.DS.1 ---
History of Present Illness Date Patient Seen: 04/04/18 Time Patient Seen: 14:40 Chief complaint: [id number] Narrative: Patient did well with physical therapy. Pain has subsided. Muscle spasms improved. Patient ready for discharge home. Discharge Providers Date of admission: 04/02/18 08:58 Primary care physician: Marcus Ma MD Consults: 04/02/18 16:39 Consult to Occupational Therapy Evaluate & Treat Comment: Physician Instructions: Evaluate and treat Consult to Physical Therapy Evaluate & Treat Comment: Physician Instructions: Evaluate and Treat Discharge provider: Rufino Valadez PA-C Discharge Date: 04/04/18 Summary Discharge Diagnosis: S/P L4-5 TLIF (post/post innerbody fusion) with cage L5S1 TLIF (post/post innerbody fusion) with cage L4, L5, S1 screws Iliac crest bone graft aspirate L4-5 and L5-S1 laminectomy Use of microscope Placement of epidural catheter Hospital Course: [age] year old male with intractable pain from stenosis. They had failed conservative management and requested operative intervention. Risks and benefits of surgery were discussed and appropriate consents were obtained. Surgeon: Sourav Saavedra Wax Machine Operator: Sulema Hansen Anesthesia Type: General Patient taken to the operating room after informed consent obtained. Patient underwent above-mentioned procedures. Patient has progressed well and is in stable condition. Status at Discharge Functional status at discharge: uses cane/walker Overall status at discharge: patient is progressing back to baseline Exam Vital Signs (past 8 hours): - 04/04/18 08:32 04/04/18 12:15 Temperature 98.1 F 98.7 F Pulse Rate 69 111 H Respiratory Rate 15 16 Blood Pressure 139/68 142/112 H Pulse Oximetry 99 98 Oxygen Delivery Method Room Air Oxygen Flow Rate 0 Narrative Exam Narrative: See progress note. Objective Labs Result Diagrams: 04/04/18 08:30 Labs: Laboratory Results - last 24 hr 04/04/18 08:30 WBC 9.1 RBC 3.40 L Hgb 10.7 L Hct 31.6 L MCV 92.9 MCH 31.6 MCHC 34.0 RDW 16.2 H Plt Count 57 L Neut % (Auto) 68.3 Lymph % (Auto) 20.0 L [place] % (Auto) 8.3 Eos % (Auto) 3.0 Baso % (Auto) 0.4 Neut # (Auto) 6200 H Discharge Plan Discharge Plan Patient Disposition: Home Discharge comment: DC home Discharge Med Rec/Prescriptions Prescriptions: New hydrocodone-acetaminophen 5-325 mg Tablet 1 tab PO Q4HR PRN (Reason: Pain, Moderate (4-6)) Qty: 60 RF: 0 hydroxyzine pamoate 25 mg Capsule 25 mg PO Q4HR PRN (Reason: Nausea And Vomiting) Qty: 30 RF: 1 Continue atorvastatin 40 mg Tablet 40 mg PO DAILY RF: 0 metformin 500 mg Tablet 500 mg PO BID RF: 0 bupropion HCl 150 mg Tablet Sustained-Release 12 Hr 150 mg PO BID RF: 0 aspirin 81 mg Tablet,Delayed Release (Dr/Ec) 81 mg PO DAILY RF: 0 Provider Discharge Instructions Diet: Diet as Tolerated and Carb-consistent/Diabetic Activity: Limit bending, twisting, lifting Cold/Heat Therapy: ice as needed Skin/Wound/Dressing Care Report to your healthcare provider any signs of infection, such as:: chills, fever, night sweats, increased pain and unusual drainage Dressing: keep clean and dry Discharge Data Primary Care Provider: Marcus Ma Attending Provider: Sourav Saavedra Admit Date/Time: 04/02/18 08:58 Quality VTE Deep Vein Thrombosis/Pulmonary Embolism Present on Admission: No
--- NOTE | 2018-04-04 14:51 | CM.DPC ---
DCP Discharge Home Per Ortho PA, pt did well with PT and muscle spasms improved and pt now stable for d/c home today and no identified barriers to discharge. Per PT, recommending safe d/c home. Plan: Patient to d/c home today via family POV and no SW needs at this time. LASHAE Reyes
--- NOTE | 2018-04-04 14:57 | PC.NURSE ---
Pt ready for discharge home. Went over d/c instructions with Pt and family. Discussed d/c meds, time of last dose, reviewed stroke education, encouraged fluid intake, and reminded Pt to limit-bending, lifting, or twisting. Pt denies further questions and was taken out via w/c to pov with daughter and all belongings.
== END 2018-04-04 14:59 | disposition home or self-care (01) | DRG 455 ==
PROVIDERS: Admitting Provider Orthopaedic Surgery; PCP Family Medicine; Visit Provider Orthopaedic Surgery
PROC: 0SG00AJ Fusion of Lumbar Vertebral Joint with Interbody Fusion Device, Posterior Approach, Anterior Column, Open Approach (ICD-10-PCS; principal; 2018-04-02 11:15)
DX: M48.062 Spinal stenosis, lumbar region with neurogenic claudication (principal); M43.16 Spondylolisthesis, lumbar region; F32.9 Major depressive disorder, single episode, unspecified; D69.6 Thrombocytopenia, unspecified; E11.9 Type 2 diabetes mellitus without complications; Z79.84 Long term (current) use of oral hypoglycemic drugs; F17.210 Nicotine dependence, cigarettes, uncomplicated
CPT/HCPCS: 36415; 72100; 76001; 82962; 85025; 94762; 97116; 97161; 97165; 97530; 97535; C1776; C1788; J0330; J0595; J0690; J1100; J2250; J2274; J2405; J2704; J3010